=== PATIENT | female | born 1980 | race Caucasian/White ===

== ENCOUNTER 2016-07-17 18:13 | Emergency (ER) | payer BC ==
[~2016-07-17] VITALS: Ht 162.6 cm; Wt 74.8 kg
[2016-07-17 18:20] VITALS: BP 133/85; PULSE 114; RESP 18; TEMP 98.8; O2SAT 99
--- NOTE | 2016-07-17 18:57 | NUR ---
Placed in room 6 .
--- NOTE | 2016-07-17 18:57 | NUR ---
ER at bedside examining patient.
--- NOTE | 2016-07-17 18:58 | NUR ---
heart beat 122 /mins monitored by portable dopple. Dr hutchins informed.
--- NOTE | 2016-07-17 18:59 | NUR ---
pt c/o vaginal bleeding since yesterday,passed a clot prior to arrival,denies any pain.
[2016-07-17 19:00] LABS: BILIRUBIN,URINE NEGATIVE (NEGATIVE); BLOOD, URINE 3+ (NEGATIVE); CLARITY/URINE CLEAR (CLEAR); COLOR,URINE YELLOW (YELLOW); GLUCOSE,URINE NEGATIVE (NEGATIVE); KETONES,URINE NEGATIVE (NEGATIVE); LEUKOCYTE ESTERASE ,URINE NEGATIVE (NEGATIVE); NITRITE, URINE NEGATIVE (NEGATIVE); PROTEIN URINE NEGATIVE (NEGATIVE); UROBILINOGEN,URINE 0.2 (0.2-1.0)
--- NOTE | 2016-07-17 19:05 | NUR ---
hand off to plate mill mill hand patricia [facility]
[2016-07-17 19:15] LABS: BACTERIA,URINE FEW /HPF (None Seen); MUCUS,URINE 1+ /LPF (None Seen); WBC,URINE 0-3 /HPF (0-3)
[2016-07-17 20:10] LABS: BASOPHILS % (AUTO) 0.3 % (0.0-2.0); EOSINOPHILS # (AUTO) 0.1 K/uL (0.0-0.4); EOSINOPHILS % (AUTO) 1.6 % (0.0-4.0); HEMATOCRIT 34.9 % (36-48); HEMOGLOBIN 11.1 g/dL (12.0-16.0); LYMPHOCYTES # (AUTO) 2.7 K/uL (1.0-5.5); LYMPHOCYTES % (AUTO) 31.9 % (20.5-51.5); MEAN CORPUSCULAR HEMOGLOBIN 24 pg (27-31); MEAN CORPUSCULAR HGB CONC 32 % (32-36); MEAN CORPUSCULAR VOLUME 76 fL (79.0-98.0); MONOCYTES # (AUTO) 0.4 K/uL (0.0-1.0); MONOCYTES % (AUTO) 4.6 % (1.7-9.3); NEUTROPHILS # (AUTO) 5.1 K/uL (1.8-7.7); NEUTROPHILS % (AUTO) 61.6 % (40.0-70.0); PLATELET COUNT (AUTO) 353 K/uL (130-430); RED BLOOD CELL COUNT(AUTO) 4.61 MIL/uL (4.2-6.2); RED CELL DISTRIBUTION WIDTH 13.9 % (9.0-15.0); WHITE BLOOD COUNT (AUTO) 8.3 K/uL (4.8-10.8)
[2016-07-17 20:20] LABS: CALCIUM 10.6 mg/dL (8.4-11.0); CREATININE 0.63 mg/dL (0.55-1.30); POTASSIUM 3.7 mmol/L (3.5-5.1)
[2016-07-17 20:31] LABS: ALBUMIN 3.9 g/dL (3.4-4.8); TOTAL BILIRUBIN 0.2 mg/dL (0.0-1.0); TOTAL PROTEIN, SERUM 8.1 g/dL (6.4-8.3)
[2016-07-17 20:34] LABS: AMYLASE 35 U/L (0-100); LIPASE 102 U/L (73-393)
[2016-07-17] MEDS ORDERED: RHO(D) IMMUNE GLOBULIN/MALTOSE 1500 UNITS/1.3 ML (WINHRO) INJ ONE (20:45)
--- NOTE | 2016-07-17 23:15 | NUR ---
Rhogam given IM on LT upper arm. Pt tolerated well.
[2016-07-17 23:20] VITALS: BP 120/82; PULSE 94; RESP 20; TEMP 99.2; O2SAT 99
--- NOTE | 2016-07-17 23:20 | NUR ---
Patient given written and verbal discharge instructions and verbalizes understanding. ER MD Dr. Gonzalez discussed with patient the results and treatment provided. Patient in stable condition. ID arm band removed. Patient educated on pain management and to follow up with PMD. Pain Scale 0/10, pt ambulated w/ steady gait. Opportunity for questions provided and answered.
== END 2016-07-17 23:20 | disposition home or self-care (01) ==
LOC: SED 18:13
DX: O03.9 Complete or unspecified spontaneous abortion without complication (principal)
CPT/HCPCS: 36415; 76801; 76817; 80053; 81000; 81025; 82150; 83690; 84702; 85025; 99285; J2790; J2792

== ENCOUNTER 2016-07-19 16:22 | Day surgery (SDC) | payer BC ==
[~2016-07-19] VITALS: Ht 165.1 cm; Wt 68.0 kg
[~2016-07-19 16:22] MED LIST: DEXAMETHASONE SOD PHOSPHATE 4 MG/ML VIAL ONE; LR 1,000 ML IV.SOLN IV ONE; METOCLOPRAMIDE HCL 10 MG/2 ML VIAL ONE; MIDAZOLAM HCL 5 MG/5 ML VIAL ONE; OXYTOCIN 10 UNIT/ML VIAL ONE; PROPOFOL 200MG/ 20ML VIAL (DIPRIVAN) IV ONE; SEVOFLURANE 15 MIN GAS INH ONE; fentaNYL CITRATE/PF 100 MCG/2 ML AMP ONE
[2016-07-19 16:25] VITALS: BP_SYST 106
[2016-07-19] MEDS: OXYTOCIN IV SCH ×2 (16:37→17:16)
[2016-07-19] MEDS: D5LR IV SCH ×2 (16:37→17:16)
[2016-07-19 16:40] LABS: BASOPHILS % (AUTO) 0.3 % (0.0-2.0); EOSINOPHILS # (AUTO) 0.1 K/uL (0.0-0.4); EOSINOPHILS % (AUTO) 0.5 % (0.0-4.0); HEMOGLOBIN 10.8 g/dL (12.0-16.0); LYMPHOCYTES # (AUTO) 5.4 K/uL (1.0-5.5); LYMPHOCYTES % (AUTO) 32.9 % (20.5-51.5); MEAN CORPUSCULAR HEMOGLOBIN 24 pg (27-31); MEAN CORPUSCULAR HGB CONC 33 % (32-36); MEAN CORPUSCULAR VOLUME 74 fL (79.0-98.0); MONOCYTES # (AUTO) 0.9 K/uL (0.0-1.0); MONOCYTES % (AUTO) 5.2 % (1.7-9.3); NEUTROPHILS # (AUTO) 10.1 K/uL (1.8-7.7); NEUTROPHILS % (AUTO) 61.1 % (40.0-70.0); PLATELET COUNT (AUTO) 429 K/uL (130-430); RED BLOOD CELL COUNT(AUTO) 4.47 MIL/uL (4.2-6.2); RED CELL DISTRIBUTION WIDTH 13.8 % (9.0-15.0); WHITE BLOOD COUNT (AUTO) 16.5 K/uL (4.8-10.8)
[2016-07-19] MEDS ORDERED: ceFAZolin SODIUM 1 GM in D5W 50 ML IV ONE (16:45)
[2016-07-19 16:48] LABS: CALCIUM 10.3 mg/dL (8.4-11.0); CREATININE 0.84 mg/dL (0.55-1.30); POTASSIUM 3.6 mmol/L (3.5-5.1)
[2016-07-19 16:49] LABS: INR 1.1 (0.8-1.2); PROTHROMBIN TIME 11.4 SECS (9.5-12.5)
[2016-07-19 16:52] LABS: ALBUMIN 3.9 g/dL (3.4-4.8); TOTAL BILIRUBIN 0.3 mg/dL (0.0-1.0); TOTAL PROTEIN, SERUM 8.1 g/dL (6.4-8.3)
[2016-07-19] MEDS ORDERED: ceFAZolin SODIUM 1 GM VIAL ONE (16:53)
[2016-07-19] MEDS ORDERED: CEFAZOLIN 1 GM IVPB PREMIX 50 ML IV ONE (16:54)
[2016-07-19] MEDS ORDERED: NACL 0.9% 2,000 ML IV ONE (17:44)
[2016-07-19] MEDS ORDERED: LR 1,000 ML IV ONE (19:27)
[2016-07-19] MEDS ORDERED: NALOXONE HCL 0.4 MG/ML AMP (NARCAN) IVP PRN (19:30)
[2016-07-19] MEDS ORDERED: ONDANSETRON HCL 4 MG/2 ML VIAL IVP PRN ×3 (19:30→19:45)
[2016-07-19] MEDS ORDERED: fentaNYL CITRATE/PF 100 MCG/2 ML AMP IVP PRN (19:30)
[2016-07-19] MEDS ORDERED: NALBUPHINE HCL 10 MG/ML AMP IVP PRN (19:30)
[2016-07-19] MEDS ORDERED: KETOROLAC TROMETHAMINE 30 MG VIAL IM PRN (19:30)
[2016-07-19] MEDS ORDERED: ePHEDrine sulfate 50 MG/ML VIAL IVP PRN (19:30)
[2016-07-19] MEDS ORDERED: DIPHENHYDRAMINE INJ 50 MG/ML VIAL IVP PRN (19:30)
[2016-07-19] MEDS ORDERED: OXYTOCIN/NORMAL SALINE 1,000 ML IV ONE (19:45)
[2016-07-19] MEDS ORDERED: OXYCODONE/ACETAMINOPHEN 5-325 TABLET PO PRN (19:45)
[2016-07-19] MEDS ORDERED: HYDROcodone/ACETAMIN 5-325 MG TAB (NORCO/ VICODIN) PO PRN (19:45)
[2016-07-19] MEDS: OXYTOCIN/NORMAL SALINE 1,000 ML IV SCH (19:45)
[2016-07-19 20:43] VITALS: BP_SYST 96
== END 2016-07-19 22:20 | disposition home or self-care (01) ==
LOC: SED 16:22 → SDS 19:47 → SMU 19:47 → SDS 22:20
PROVIDERS: ATTEND Specialist
DX: O03.4 Incomplete spontaneous abortion without complication (principal); D64.89 Other specified anemias; Z3A.14 14 weeks gestation of pregnancy
CPT/HCPCS: 36415; 59812; 80053; 82962; 85025; 85610; 86870; 86886; 86900; 86901; 87081; 88305; 93005; J0690; J1100; J2250; J2590 ×2; J2704; J2765; J3010; J7120

== ENCOUNTER 2017-12-22 01:13 | Inpatient (IN) | payer BC ==
[~2017-12-22] VITALS: Ht 162.6 cm; Wt 83.0 kg
[2017-12-22] MEDS ORDERED: LR 1,000 ML IV SCH (01:35)
[2017-12-22] MEDS ORDERED: CLINDAMYCIN 900 mg/50mL D5W 50 ML IV ONE (01:45)
[2017-12-22 02:16] LABS: HEMATOCRIT 30.9 % (36-48); HEMOGLOBIN 10.2 g/dL (12.0-16.0); MEAN CORPUSCULAR HEMOGLOBIN 25 pg (27-31); MEAN CORPUSCULAR HGB CONC 33 % (32-36); MEAN CORPUSCULAR VOLUME 77 fL (79.0-98.0); PLATELET COUNT (AUTO) 228 K/uL (130-430); RED BLOOD CELL COUNT(AUTO) 4.02 MIL/uL (4.2-6.2); RED CELL DISTRIBUTION WIDTH 15.3 % (9.0-15.0); WHITE BLOOD COUNT (AUTO) 7.4 K/uL (4.8-10.8)
[2017-12-22 02:39] LABS: BILIRUBIN,URINE NEGATIVE (NEGATIVE); CLARITY/URINE SL HAZY (CLEAR); COLOR,URINE YELLOW (YELLOW); GLUCOSE,URINE NEGATIVE (NEGATIVE); KETONES,URINE 1+ (NEGATIVE); LEUKOCYTE ESTERASE ,URINE 2+ (NEGATIVE); NITRITE, URINE NEGATIVE (NEGATIVE); PROTEIN URINE TRACE (NEGATIVE)
[2017-12-22 02:42] LABS: BLOOD, URINE TRACE (NEGATIVE)
[2017-12-22 02:56] LABS: BACTERIA,URINE MODERATE /HPF (None Seen); WBC,URINE 20-50 /HPF (0-3); YEAST,URINE Rare /HPF (None Seen)
[2017-12-22 03:09] LABS: BASOPHILS % (MANUAL) 0 % (0-2); EOSINOPHILS % (MANUAL) 0 % (0-7); LYMPHOCYTES % (MANUAL) 35 % (20-46); MONOCYTES % (MANUAL) 1 % (0-11)
[2017-12-22] MEDS ORDERED: MEPERIDINE HCL/PF 50 MG/ML AMP IM PRN (03:30)
[2017-12-22] MEDS ORDERED: PROMETHAZINE HCL 50 MG/ML AMP IM ONE (03:30)
[2017-12-22] MEDS ORDERED: PROMETHAZINE HCL 25 MG/ML AMP ONE (03:44)
[2017-12-22] MEDS: TERBUTALINE SULFATE 1 MG/ML VIAL SUBCUT PRN ×2 (04:10→09:11)
[2017-12-22 04:11] VITALS: BP_SYST 130
[2017-12-22] MEDS ORDERED: CLINDAMYCIN 900 mg/50mL D5W 50 ML IV SCH (06:00)
[2017-12-22] MEDS ORDERED: BETAMET ACET/BETAMET NA PH 30 MG/5 ML VIAL IM ONE ×2 (07:30→07:31)
[2017-12-22] MEDS ORDERED: AZITHROMYCIN 500 MG in NS 250 ML IV ONE (07:30)
--- NOTE | 2017-12-22 09:25 | NUR ---
Case mgt: Rec'd message from household appliance installer Ibrahima at 0850 that OB called them re: transfer of pt to [facility] as pt is 34 wks with twins and too high-risk to deliver here at [facility]-pt having contractions but receiving medication to attempt to stop the contractions. I s/w Deirdre in OB, who said she had already s/w OB dept at [facility] and that they said they could take pt and will call Deirdre back. Deirdre needs to know which ambulance to use for OB transport with nurse. I called [facility]--s/w Haseeb-they require auth from [facility] first or they bill the hospital if no auth. I s/w [facility]-they aren't contracted with [facility]. I called [facility]-they have to have authorization and they do not bill the hospital but can't take pt without auth. I contacted cm director Ellen Haji, to advise her of situation-she is assisting me in contacting [facility] for ambulance auth. and if unable to get timely auth, then she will authorize ambulance company to bill the hospital for OB transport with nurse. OMA RN Addendum: 12/22/17 at 1135 by Nargis Carrera RN Case mgt: [place] [id number] [facility] transport arranged at 1004 (we will send our RN with pt per Deirdre, charge nurse OB) and Bobbi at [place] [phone] aware we are sending our nurse with pt--Ellen Worrell, cm director aware and she will also let MARICARMEN Reyes and Alejandra, Admin on-call know of this situation. Per Bobbi at [facility]- use code [id number] for ACLS transportation technician and [employer] gave Ellen auth#[id number]--S called [facility]- dispatch at 1008 at [phone], spoke with Loco and confirmed ACLS unit on the way and gave him auth and code #s for transport--Nurse Deirdre in OB was updated also--[place] [id number] has picked up the pt for higher level of care transport to [facility]
== END 2017-12-22 11:00 | disposition short-term general hospital (02) | DRG 833 ==
LOC: SPU 01:13
PROVIDERS: ADMIT Specialist; ATTEND Specialist
DX: O42.913 Preterm premature rupture of membranes, unspecified as to length of time between rupture and onset of labor, third trimester (principal); Z3A.35 35 weeks gestation of pregnancy
CPT/HCPCS: 36415; 81000-TC; 82962; 85007; 85027; 86592; 86870; 86886; 86900; 86901; 87086; 87186-TC; J0456; J0702; J2175; J2550; J3105; J3490; J7050; J7120

== ENCOUNTER 2019-08-08 15:21 | Emergency (ER) | payer BC ==
[~2019-08-08] VITALS: Ht 162.6 cm; Wt 81.6 kg
[2019-08-08 15:21] VITALS: BP_SYST 131
--- NOTE | 2019-08-08 15:21 | NUR ---
REPORT GIVEN TO PEGGY
--- NOTE | 2019-08-08 15:21 | NUR ---
BROUGHT TO BED #7 VIA WHEELCHAIR FROM OB DEPT, PT CLEARED BY OB DUE TO BEING 30 WEEKS . PT TRIAGED AND REPORT GIVEN TO CARLY
--- NOTE | 2019-08-08 15:30 | NUR ---
PT STATES WHILE WALKING IN YARD, HAD MECHANICAL FALL IN A HOLE FROM [employer]. PT STATES BRUISING TO CARIDAD KNEES/CALVES, STATES LEFT SHOULDER PAIN AND LEFT SCAPULAR PAIN. STATES LOWER BACK IS A LITTLE SORE. NO K.O. PT IS 30 WEEKS WITH SURROGATE BABY, PT WAS CLEARED BY OB DEPT NURSE VERNELL.
--- NOTE | 2019-08-08 15:45 | NUR ---
DR HAYES AT BEDSIDE FOR EVALUATION
--- NOTE | 2019-08-08 16:01 | NUR ---
Patient given written and verbal discharge instructions and verbalizes understanding. ER MD discussed with patient the results and treatment provided. Patient in stable condition. ID arm band removed. Rx of LIDOCAINE PATCH 5% given. Patient educated on pain management and to follow up with PMD. Pain Scale 0/10. Opportunity for questions provided and answered. Medication side effect fact sheet provided.
== END 2019-08-08 16:01 | disposition home or self-care (01) ==
LOC: SED 15:21 → EDSTATUS 15:21 → SED 16:01
DX: O9A.213 Injury, poisoning and certain other consequences of external causes complicating pregnancy, third trimester (principal); S23.3XXA Sprain of ligaments of thoracic spine, initial encounter; Z88.0 Allergy status to penicillin; Z3A.30 30 weeks gestation of pregnancy; W18.39XA Other fall on same level, initial encounter; Y93.89 Activity, other specified; Y92.89 Other specified places as the place of occurrence of the external cause; Y99.8 Other external cause status
CPT/HCPCS: 99284

== ENCOUNTER 2019-10-01 05:55 | Inpatient (IN) | payer BC ==
[~2019-10-01] VITALS: Ht 162.6 cm; Wt 82.1 kg
[2019-10-01] MEDS ORDERED: LR 1,000 ML IV ONE (07:12)
[2019-10-01] MEDS ORDERED: CLINDAMYCIN 900 mg/50mL D5W 50 ML IV ONE (07:15)
[2019-10-01 07:54] LABS: BILIRUBIN,URINE NEGATIVE (NEGATIVE); BLOOD, URINE NEGATIVE (NEGATIVE); CLARITY/URINE SL CLOUDY (CLEAR); COLOR,URINE YELLOW (YELLOW); GLUCOSE,URINE NEGATIVE (NEGATIVE); KETONES,URINE NEGATIVE (NEGATIVE); LEUKOCYTE ESTERASE ,URINE NEGATIVE (NEGATIVE); NITRITE, URINE NEGATIVE (NEGATIVE); PH,URINE 5.5 (5.0-8.0); PROTEIN URINE 2+ (NEGATIVE)
[2019-10-01 07:54] LABS: BASOPHILS % (AUTO) 0.4 % (0.0-2.0); EOSINOPHILS # (AUTO) 0.1 K/uL (0.0-0.4); HEMATOCRIT 31.8 % (36-48); HEMOGLOBIN 10.8 g/dL (12.0-16.0); LYMPHOCYTES # (AUTO) 1.6 K/uL (1.0-5.5); MEAN CORPUSCULAR HEMOGLOBIN 28 pg (27-31); MEAN CORPUSCULAR HGB CONC 34 % (32-36); MEAN CORPUSCULAR VOLUME 83 fL (79.0-98.0); MONOCYTES # (AUTO) 0.4 K/uL (0.0-1.0); MONOCYTES % (AUTO) 6.7 % (1.7-9.3); NEUTROPHILS # (AUTO) 3.3 K/uL (1.8-7.7); NEUTROPHILS % (AUTO) 61.9 % (40.0-70.0); PLATELET COUNT (AUTO) 215 K/uL (130-430); RED BLOOD CELL COUNT(AUTO) 3.85 MIL/uL (4.2-6.2); RED CELL DISTRIBUTION WIDTH 13.6 % (9.0-15.0); WHITE BLOOD COUNT (AUTO) 5.3 K/uL (4.8-10.8)
[2019-10-01 08:21] LABS: RBC,URINE 0-3 /HPF (0-3)
[2019-10-01 08:22] LABS: BACTERIA,URINE FEW /HPF (None Seen)
[2019-10-01] MEDS ORDERED: KETAMINE HCL 500 MG/10 ML VIAL ONE ×2 (09:21→10:15)
[2019-10-01] MEDS ORDERED: METHYLERGONOVINE MALEATE 0.2 MG/ML AMP ONE (09:26)
[2019-10-01] MEDS ORDERED: HYDROmorphone 2 MG/ML VIAL IVP PRN (09:30)
[2019-10-01] MEDS ORDERED: DIPHENHYDRAMINE HCL 25 MG CAPSULE PO PRN (09:30)
[2019-10-01] MEDS ORDERED: hydrALAZINE HCL 20 MG/ML VIAL IV PRN (09:30)
[2019-10-01] MEDS ORDERED: KETOROLAC TROMETHAMINE 60 MG/2 ML VIAL IM PRN (09:30)
[2019-10-01] MEDS ORDERED: ONDANSETRON HCL 4 MG/2 ML VIAL IVP PRN (09:30)
[2019-10-01] MEDS ORDERED: NALOXONE HCL 0.4 MG/ML AMP (NARCAN) IVP PRN ×2 (09:30→10:00)
[2019-10-01] MEDS ORDERED: LR 1,000 ML IV SCH (09:50)
[2019-10-01] MEDS ORDERED: HYDROcodone/ACETAMIN 5-325 MG TAB (NORCO/ VICODIN) PO PRN (10:00)
[2019-10-01] MEDS ORDERED: ANUSOL 1 EA SUPP.RECT (PREPARATION H) RC PRN (10:00)
[2019-10-01] MEDS ORDERED: SENNOSIDES/DOCUSATE SODIUM 1 TAB TABLET(SENOKOT-S) PO PRN (10:00)
[2019-10-01] MEDS ORDERED: RHO(D) IMMUNE GLOBULIN/MALTOSE 1500 UNITS/1.3 ML (WINHRO) IM PRN (10:00)
[2019-10-01] MEDS ORDERED: BISACODYL 10 MG/SUPPOSITORY RC PRN (10:00)
[2019-10-01] MEDS ORDERED: DIPH-TET-PERTUS Vaccine 0.5 ML VIAL (ADACEL) I.M. PRN (10:00)
[2019-10-01] MEDS ORDERED: MEASLES,MUMPS&RUBELLA VACC/PF 12500 UNIT/0.5 ML VIAL SUBQ PRN (10:00)
[2019-10-01] MEDS ORDERED: OXYCODONE/ACETAMINOPHEN 5-325 TABLET PO PRN (10:00)
[2019-10-01] MEDS ORDERED: LANOLIN 7 GM OINT. TP PRN (10:00)
[2019-10-01] MEDS ORDERED: ONDANSETRON HCL 4 MG/2 ML VIAL ONE (10:15)
[2019-10-01] MEDS ORDERED: BUPIVACAINE /DEX PF 0.75% SPINAL 2 ML AMP INJ ONE (10:15)
[2019-10-01] MEDS ORDERED: LR 1,000 ML IV.SOLN IV ONE (10:15)
[2019-10-01] MEDS ORDERED: OXYTOCIN 10 UNIT/ML VIAL ONE (10:15)
[2019-10-01] MEDS ORDERED: MORPHINE SULFATE 10MG/10ML PF AMP ONE (10:15)
[2019-10-01] MEDS ORDERED: NS IRRIG SOLN 1000 ML IR ONE (10:15)
[2019-10-01] MEDS ORDERED: MIDAZOLAM HCL 5 MG/ML VIAL (VERSED) IV ONE (10:15)
[2019-10-01] MEDS: DIPHENHYDRAMINE INJ 50 MG/ML VIAL IVP PRN ×3 (11:05→23:16)
[2019-10-01] MEDS ORDERED: DIPHENHYDRAMINE INJ 50 MG/ML VIAL ONE (11:19)
[2019-10-01] MEDS ORDERED: OXYTOCIN/0.9 % SODIUM CHLORIDE 1,000 ML IV ONE (11:42)
[2019-10-01 11:43] LABS: HEMATOCRIT 24.4 % (36-48); HEMOGLOBIN 8.2 g/dL (12.0-16.0)
[2019-10-01] MEDS: OXYTOCIN/0.9 % SODIUM CHLORIDE 1,000 ML IV SCH ×2 (11:54→20:00)
[2019-10-01] MEDS ORDERED: CEFAZOLIN 1 GM IVPB PREMIX 50 ML IV SCH ×2 (12:00→15:00)
[2019-10-01 13:21] VITALS: BP_SYST 171
[2019-10-01] MEDS: SIMETHICONE 80 MG TAB.CHEW PO PRN ×2 (15:54→23:16)
[2019-10-01] MEDS: HYDROmorphone 2 MG/ML VIAL IVP PRN ×2 (15:55→22:15)
[2019-10-01] MEDS: CLINDAMYCIN 600 mg/50mL D5W 50 ML IV SCH ×2 (16:51→23:16)
[2019-10-01 18:44] LABS: BASOPHILS % (AUTO) 0.2 % (0.0-2.0); EOSINOPHILS # (AUTO) 0.1 K/uL (0.0-0.4); EOSINOPHILS % (AUTO) 0.6 % (0.0-4.0); HEMATOCRIT 22.6 % (36-48); HEMOGLOBIN 7.4 g/dL (12.0-16.0); LYMPHOCYTES # (AUTO) 2.2 K/uL (1.0-5.5); LYMPHOCYTES % (AUTO) 20.8 % (20.5-51.5); MEAN CORPUSCULAR HEMOGLOBIN 27 pg (27-31); MEAN CORPUSCULAR HGB CONC 33 % (32-36); MEAN CORPUSCULAR VOLUME 83 fL (79.0-98.0); MONOCYTES # (AUTO) 0.6 K/uL (0.0-1.0); MONOCYTES % (AUTO) 5.7 % (1.7-9.3); NEUTROPHILS # (AUTO) 7.6 K/uL (1.8-7.7); NEUTROPHILS % (AUTO) 72.7 % (40.0-70.0); PLATELET COUNT (AUTO) 230 K/uL (130-430); RED BLOOD CELL COUNT(AUTO) 2.71 MIL/uL (4.2-6.2); RED CELL DISTRIBUTION WIDTH 13.6 % (9.0-15.0); WHITE BLOOD COUNT (AUTO) 10.4 K/uL (4.8-10.8)
[2019-10-01] MEDS: TEMAZEPAM 15 MG CAPSULE PO PRN (23:16)
[2019-10-02] MEDS: DOCUSATE SODIUM 100 MG CAPSULE PO PRN ×2 (02:28→10:45)
[2019-10-02] MEDS: HYDROmorphone 2 MG/ML VIAL IVP PRN ×2 (02:28→07:44)
[2019-10-02] MEDS: SIMETHICONE 80 MG TAB.CHEW PO PRN ×4 (02:29→22:46)
[2019-10-02] MEDS: OXYTOCIN/0.9 % SODIUM CHLORIDE 1,000 ML IV SCH (04:00)
[2019-10-02] MEDS: CLINDAMYCIN 600 mg/50mL D5W 50 ML IV SCH (05:56)
[2019-10-02 06:50] LABS: BASOPHILS % (AUTO) 0.2 % (0.0-2.0); EOSINOPHILS # (AUTO) 0.1 K/uL (0.0-0.4); EOSINOPHILS % (AUTO) 0.9 % (0.0-4.0); HEMOGLOBIN 8.7 g/dL (12.0-16.0); LYMPHOCYTES # (AUTO) 1.9 K/uL (1.0-5.5); MEAN CORPUSCULAR HEMOGLOBIN 28 pg (27-31); MEAN CORPUSCULAR HGB CONC 33 % (32-36); MEAN CORPUSCULAR VOLUME 84 fL (79.0-98.0); MONOCYTES # (AUTO) 0.8 K/uL (0.0-1.0); MONOCYTES % (AUTO) 5.3 % (1.7-9.3); NEUTROPHILS # (AUTO) 12.7 K/uL (1.8-7.7); NEUTROPHILS % (AUTO) 81.6 % (40.0-70.0); PLATELET COUNT (AUTO) 367 K/uL (130-430); RED BLOOD CELL COUNT(AUTO) 3.09 MIL/uL (4.2-6.2); RED CELL DISTRIBUTION WIDTH 13.4 % (9.0-15.0); WHITE BLOOD COUNT (AUTO) 15.5 K/uL (4.8-10.8)
[2019-10-02] MEDS: OXYCODONE/ACETAMINOPHEN *10*mg/325 mg TABLET PO PRN ×4 (10:45→22:47)
[2019-10-02] MEDS ORDERED: IBUPROFEN 600 MG TABLET ONE (18:09)
[2019-10-02] MEDS: TEMAZEPAM 15 MG CAPSULE PO PRN (22:46)
[2019-10-02] MEDS: IBUPROFEN 600 MG TABLET PO SCH (23:43)
[2019-10-03] MEDS: DOCUSATE SODIUM 100 MG CAPSULE PO PRN ×3 (05:34→23:32)
[2019-10-03] MEDS: IBUPROFEN 600 MG TABLET PO SCH ×4 (05:34→23:30)
[2019-10-03] MEDS: SIMETHICONE 80 MG TAB.CHEW PO PRN ×3 (05:34→18:29)
[2019-10-03] MEDS ORDERED: IBUPROFEN 600 MG TABLET PO SCH (06:00)
[2019-10-03] MEDS: OXYCODONE/ACETAMINOPHEN *10*mg/325 mg TABLET PO PRN ×3 (07:55→19:03)
[2019-10-03 19:06] LABS: FTA-Ab (T PALLIDUM) Non Reactive (Non Reactive)
[2019-10-03] MEDS: TEMAZEPAM 15 MG CAPSULE PO PRN (23:32)
[2019-10-04] MEDS: OXYCODONE/ACETAMINOPHEN *10*mg/325 mg TABLET PO PRN ×2 (01:16→12:23)
[2019-10-04] MEDS: TEMAZEPAM 15 MG CAPSULE PO PRN (01:19)
[2019-10-04] MEDS: IBUPROFEN 600 MG TABLET PO SCH ×2 (06:54→12:22)
[2019-10-04] MEDS: SIMETHICONE 80 MG TAB.CHEW PO PRN ×2 (08:20→12:22)
== END 2019-10-04 15:15 | disposition home or self-care (01) | DRG 788 ==
LOC: SPU 05:55
PROVIDERS: ADMIT Specialist; ATTEND Specialist
PROC: 0DNP0ZZ Release Rectum, Open Approach (ICD-10-PCS; 2019-10-01)
PROC: 10D00Z1 Extraction of Products of Conception, Low, Open Approach (ICD-10-PCS; principal; 2019-10-01 08:30)
PROC: 3E0234Z Introduction of Serum, Toxoid and Vaccine into Muscle, Percutaneous Approach (ICD-10-PCS; 2019-10-02)
DX: O34.211 Maternal care for low transverse scar from previous cesarean delivery (principal); O16.4 Unspecified maternal hypertension, complicating childbirth; O76 Abnormality in fetal heart rate and rhythm complicating labor and delivery; O99.89 Other specified diseases and conditions complicating pregnancy, childbirth and the puerperium; O69.1XX0 Labor and delivery complicated by cord around neck, with compression, not applicable or unspecified; N73.6 Female pelvic peritoneal adhesions (postinfective); Z3A.38 38 weeks gestation of pregnancy; Z37.0 Single live birth
CPT/HCPCS: 36415; 81000-TC; 85018-TC; 85025; 86592; 86780; 86870; 86886; 86900; 86901; 86920; 94760; J1170; J1200; J2210; J2250; J2274; J2405; J2590; J2790; J3490; J7120